=== PATIENT | male | born 1980 | race Caucasian/White ===

== ENCOUNTER 2019-06-09 10:38 | Day surgery (SDC) | payer BC ==
[~2019-06-09 10:38] MED LIST: CEFAZOLIN SODIUM 2 GM in DEXTROSE 5%-WATER 100 ML IV PRN; ONDANSETRON HCL INJ/PF 4 MG/2 ML SDV ONE; SUCCINYLCHOLINE CHLORIDE INJ 200 MG/10 ML VIAL ONE
[2019-06-09] MEDS ORDERED: CEFAZOLIN INJ 1 GM VIAL ONE (10:49)
[2019-06-09 11:34] LABS: ABSOLUTE BASOPHILS # (AUTO) 0.1 10^3/uL (0.0-0.2); ABSOLUTE LYMPHOCYTES (AUTO) 1.3 10^3/uL (0.5-4.7); ABSOLUTE MONOCYTES (AUTO) 0.5 10^3/uL (0.1-1.4); ABSOLUTE NEUT (AUTO) 3.9 10^3/uL (1.7-8.2); BASOPHILS % (AUTO) 1.1 % (0-2); EOSINOPHILS % (AUTO) 0.5 % (0-6); HEMATOCRIT 43.4 % (37.9-51.0); HEMOGLOBIN 14.9 g/dL (13.5-17.0); LYMPHOCYTES % (AUTO) 22.6 % (13-45); MEAN CORPUSCULAR HEMOGLOBIN 31.1 pg (27.0-33.4); MEAN CORPUSCULAR HGB CONC 34.4 g/dL (32.0-36.0); MEAN CORPUSCULAR VOLUME 91 fl (80-97); MONOCYTES % (AUTO) 8.4 % (3-13); PLATELET COUNT 309 10^3/uL (150-450); RED BLOOD COUNT 4.79 10^6/uL (4.35-5.55); SEGMENTED NEUTROPHILS % (AUTO) 67.4 % (42-78); TOTAL CELLS COUNTED % (AUTO) 100 %; WHITE BLOOD COUNT 5.8 10^3/uL (4.0-10.5)
[2019-06-09 11:52] LABS: ANION GAP 9 (5-19); BLOOD UREA NITROGEN 20 mg/dL (7-20); CALCIUM 9.8 mg/dL (8.4-10.2); CARBON DIOXIDE 30 mmol/L (22-30); CHLORIDE 102 mmol/L (98-107); GLUCOSE 88 mg/dL (75-110); POTASSIUM 4.8 mmol/L (3.6-5.0)
[2019-06-09] MEDS ORDERED: MIDAZOLAM 2 MG/2 ML INJ ONE (11:57)
[2019-06-09] MEDS ORDERED: PROPOFOL INJ 200 MG/20 ML VIAL IV ONE ×2 (11:57→12:41)
[2019-06-09] MEDS ORDERED: FENTANYL CITRATE INJ/PF 100 MCG/2 ML AMPUL ONE (11:57)
[2019-06-09] MEDS ORDERED: LIDOCAINE 1% INJ-PF (10 MG/ML) 30 ML SDV ONE (12:10)
[2019-06-09] MEDS ORDERED: BUPIVACAINE HCL 0.5 % INJ/PF 30 ML SDV ONE (12:10)
[2019-06-09] MEDS ORDERED: MEPERIDINE HCL/PF INJ 25 MG/1 ML DISP.SYRIN IV PRN (14:21)
[2019-06-09] MEDS ORDERED: PROMETHAZINE HCL INJ 25 MG/1 ML VIAL IV PRN ×2 (14:21)
[2019-06-09] MEDS ORDERED: FENTANYL CITRATE INJ/PF 100 MCG/2 ML AMPUL IV PRN ×3 (14:21)
[2019-06-09] MEDS ORDERED: DIPHENHYDRAMINE HCL 50 MG/ML VIAL IV PRN (14:21)
[2019-06-09] MEDS ORDERED: MORPHINE SULFATE 10 MG/ML INJ IV PRN ×2 (14:21→15:40)
[2019-06-09] MEDS ORDERED: ONDANSETRON HCL INJ/PF 4 MG/2 ML SDV IV PRN (15:40)
[2019-06-09] MEDS ORDERED: OXYCODONE-ACETAMINOPHEN 5-325 MG TABLET PO PRN (15:40)
--- NOTE | 2019-06-09 15:40 | Discharge Summary ---
Discharge Summary (SDC) - Discharge Final Diagnosis: Right thumb CMC dislocation Date of Surgery: 06/09/19 Discharge Date: 06/09/19 Condition: Good Treatment or Instructions: Schedule Follow Up w/ Dr. Doroteo Ramirez @ [facility] for Surgery to be seen in 10-14 days or as scheduled [place]: [place]: [place]: Ice and elevate Keep splint clean/dry/intact, do not remove. If your fingers become numb please unwrap the Terrence wrap but leave the splint in place, if the sensation does not return within 30 minutes please return to the emergency department. May begin finger range of motion attempting to make full fist. Please use ibuprofen (Motrin or Advil) 600-800 mg every 8 hours as needed for pain or fever DO NOT TAKE w/ TORADOL may use once TORADOL complete. You may also use acetaminophen (Tylenol) 1000 mg every 4-6 hours as needed for pain or fever. Please be aware that many medications contain acetaminophen, do not exceed a total of 1000 mg of acetaminophen every 6 hours. If ibuprofen and acetaminophen are not sufficient for your pain you may take the Percocet/[place]. Please be aware that the Percocet/[place] does contain Tylenol. Stool softener of choice when on pain medication. USE OF [id number] IBUPROFEN: Ibuprofen (Advil, Nuprin, Medipren, Motrin IB) is a medication for fever and pain control. In addition, it has anti- inflammatory effects which may be beneficial, especially in the treatment of injuries. It's best to take ibuprofen with food. Persons with ulcer disease or allergy to aspirin should notify their physician of this before taking ibuprofen. Ibuprofen can be given every four to six hours, for a total of four doses daily. Age Pain or fever dose Antiinflammatory dose 6-8 yr 200 mg (1 tab) 200 mg (1 tab) 9-11 yr 200 mg (1 tab) 200-400 mg (1-2 tab) 11-14 yr 200-400 mg (1-2 tab) 400 mg (2 tab) 15-adult 400 mg (2 tab) 600 mg (3 tab) ORAL NARCOTIC MEDICATION: You have been given a prescription for pain control. This medication is a narcotic. It's best taken with food, as nausea can result if taken on an empty stomach. Don't operate machinery or drive within six hours of taking this medication. Do not combine this medicine with alcohol, or with any medication which can cause sedation (such as cold tablets or sleeping pills) unless you get permission from the physician. Narcotics tend to cause constipation. If possible, drink plenty of fluids and eat a diet high in fiber and fruits. Please be aware that prescription narcotics also have the potential for abuse. People become addicted to these medications because of the general sense of wellbeing that they induce. This feeling along with a significant reduction in tension, anxiety, and aggression provides a stimulating seductive quality to these drugs. Once your pain is under control, we encourage you to discard your unused narcotics. Prescriptions: Ketorolac Tromethamine [Toradol 10 mg Tablet] 10 mg PO Q8HP PRN #12 tablet PRN Reason: Oxycodone HCl/Acetaminophen [Percocet 5-325 mg Tablet] 1 tab PO Q6 PRN #25 tablet PRN Reason: Referrals: SYLVIA BAEZ DO [Primary Care Provider] - Discharge Diet: As Tolerated Respiratory Treatments at Home: Deep Breathing/Coughing, Incentive Spirometer Discharge Activity: No Lifting Over 10 Pounds, No Lifting/Push/Pulling Report the Following to Your Physician Immediately: Fever over 101 Degrees, Unusual Bleeding, Redness, Swelling, Warmth, Increased Soreness
--- NOTE | 2019-06-09 15:55 | Operative Report ---
Operative Report DATE OF SURGERY: 06/09/19 PREOPERATIVE DIAGNOSIS: Right thumb CMC dislocation with trapezoid fracture POSTOPERATIVE DIAGNOSIS: Same OPERATION: Open reduction internal fixation right thumb CMC joint dislocation with ligament reconstruction with FCR autograft, percutaneous pinning, nonoperative treatment trapezoid SURGEON: LAM MÉNDEZ COMPLICATIONS: None ESTIMATED BLOOD LOSS: Minimal PROCEDURE: Indication for above procedure: 38-year-old male who sustained a injury when his thumb hit a rock during snowboarding approximately 1 week ago. Patient was seen this week where radiographs demonstrate CMC joint subluxation/dislocation with associated trapezoid fracture. Upon follow-up we discussed treatment options including operative versus nonoperative intervention. We discussed closed versus open reduction understanding limits of each. There is the possibility of recurrence despite adequate fixation after discussing risks and benefits joint decision was made to proceed with operative intervention. Procedure In Detail: Patient was seen and evaluated in the preoperative holding area. The RIGHT upper extremity was initialized and marked. Patient received 2g of Ancef IV for bacterial prophylaxis. Patient was taken back to the operative room where transferred to the operative table and placed under general anesthesia. Once they were adequately anesthetized a nonsterile tourniquet was placed on the upper extremity. A surgical team debriefing was performed ensuring all instrumentation was available, the surgical procedure was discussed with possible concerns reviewed. The upper extremity was prepped with chlorhexidine and alcohol and draped in a sterile fashion. A timeout was done identifying correct patient, procedure and extremity everyone in attendance agree with this and verbalized no concerns. The extremity was exsanguinated the tourniquet was inflated to 250 mmHg. Close reduction was attempted but unsuccessful thus decision was made to proceed with open reduction. A Jil skin incision was made along the thumb CMC joint. Blunt dissection was performed. Branches of the superficial radial nerve were freed from surrounding soft tissue and retracted. Superficial branch of the radial artery was identified and protected. Branches were protected throughout the case. The CMC joint was identified between the APL and EPB at the first dorsal compartment. Thenar musculature was extraperiosteal dissected to further expose the CMC joint. Transverse capsulotomy was made identifying interposed soft tissue. No evidence of chondral damage. Joint was then reduced C arm fluoroscopy was obtained confirming reduction of the fracture however patient had significant residual instability and thus would require ligament reconstruction. Insertion of the FCR was identified along the trapezial ridge and the distal septum released. 3-0 nylon suture was placed through the FCR to harvest a 4 mm radiallydistally based graft. 2 additional transverse skin incisions were made proximally shuttling the 3-0 nylon suture from a distal to proximal direction. Due to the configuration of the FCR tendon the ulnar portion was then released and tendon graft shuttled distally. Tendon wound was freed from soft tissue and released up to the trapezial ridge and its insertion along the index metacarpal base. The dorsal aspect of the thumb metacarpal was then isolated a 0.045 K wire was placed from dorsal to volar perpendicular to the thumbnail. C-arm fluoroscopy was obtained confirming appropriate trajectory. A 2.7 mm cannulated drill was then utilized to form a bone tunnel. Coello suture passer was then advanced from dorsal to volar and the FCR tendon shuttled beneath the superficial radial artery, superficial radial nerve and thenar musculature to be passed from a volar to dorsal direction. While maintaining reduction of the CMC joint attention was placed to the FCR tendon graft special attention was to avoid over tensioning the CMC joint once tension was optimized C arm fluoroscopy was obtained demonstrating anatomic reduction of the CMC joint. The graft was then sutured to the dorsal periosteum with 3-0 Ethibond suture. Range of motion of the CMC joint was performed to ensure adequate and optimal tension. Tendon graft was then passed beneath the 2 slips of the APL, passed around the intact FCR and then sutured to itself. Further sutures were placed to the periosteum and APL tendon utilizing 3-0 Ethibond and 4-0 FiberWire. At completion C arm fluoroscopy was obtained confirming acceptable reduction of the CMC joint with no evidence of subluxation and adequate stability on stress examination. While maintaining reduction a 0.045 K wire was placed on oscillate across the CMC joint with the thumb and radial abduction and extension. Final C-arm fluoroscopy was obtained confirming appropriate alignment of the K wire, CMC joint. Pin was then bent and cut left outside the skin. C arm fluoroscopy was then obtained of the third metacarpal base and trapezoid demonstrating no evidence of CMC subluxation or displacement of the fracture thus treatment would include closed treatment and splinting and cast. Wound was then copiously irrigated with normal saline. Tourniquet was deflated. Any peripheral bleeding was controlled with bipolar cautery. Thenar musculature was reapproximated with 3-0 Vicryl suture. Subcutaneous tissues were closed with 4-0 Monocryl suture. Skin was closed with subcuticular 4-0 Monocryl reinforced with Dermabond and Steri-Strips. 30 cc of 0.5% bupivacaine without epinephrine was injected for postoperative pain control. Patient was placed in a thumb spica splint maintaining radial abduction and mild extension of the CMC joint. Sponge counts, instrument counts, needle counts were correct. Patient was then awoken from anesthesia. Transferred from the operating room table to the operating room stretcher. There was no intraoperati ve complications patient tolerated procedure well stable to PACU. Postoperative plan: Patient follow-up in the office in 2 weeks at which point we will obtain radiographs. Will be placed in a thumb spica cast for additional 4 weeks. Patient will then be set up for occupational therapy fitted for a thermoplastic long opponent splint for additional 2 weeks we will begin range of motion at 4 weeks postoperatively. We will begin gentle strengthening at 8 weeks postoperative. Avoid strenuous pinching, torsional motion for for 3 months.
[2019-06-09] MEDS ORDERED: MEPERIDINE HCL/PF INJ 25 MG/1 ML DISP.SYRIN ONE (15:59)
[2019-06-09] MEDS: FENTANYL CITRATE INJ/PF 100 MCG/2 ML AMPUL ONE ×2 (16:08→16:20)
[2019-06-09] MEDS: HYDROMORPHONE HCL INJ/PF 2 MG/ML AMPULE ONE ×4 (16:36→16:56)
[2019-06-09] MEDS ORDERED: KETOROLAC TROMETHAMINE INJ/PF 30 MG/1 ML SDV ONE (16:42)
--- NOTE | 2019-06-09 16:43 | RADIOLOGY REPORT (SQ) ---
EXAM DESCRIPTION: NO CHG FLUORO; FINGER RIGHT COMPLETED DATE/TIME: 06/09/2019 3:33 pm REASON FOR STUDY: RT THUMB LIGAMENT RECONSTRUCTION, PINNING ASST WITH FLUORO IN OR COMPARISON: None. FLUOROSCOPY TIME: 2 minutes 8 seconds 7 Images saved to PACS LIMITATIONS: None. PROCEDURE: Thumb ligament reconstruction with pinning. FINDINGS: Images from fluoro document the procedure. IMPRESSION: Some ligament reconstruction with pinning. Refer to operative note for further informat ion. COMMENT: PQRS 6045F: Fluoroscopy time of the procedure is documented in the report. TECHNICAL DOCUMENTATION: JOB ID: [id number] [employer]- All Rights Reserved Reading location - IP/workstation name: [email or web address]
--- NOTE | 2019-06-09 16:43 | RADIOLOGY REPORT (SQ) ---
EXAM DESCRIPTION: NO CHG FLUORO; FINGER RIGHT COMPLETED DATE/TIME: 06/09/2019 3:33 pm REASON FOR STUDY: RT THUMB LIGAMENT RECONSTRUCTION, PINNING ASST WITH FLUORO IN OR COMPARISON: None. FLUOROSCOPY TIME: 2 minutes 8 seconds 7 Images saved to PACS LIMITATIONS: None. PROCEDURE: Thumb ligament reconstruction with pinning. FINDINGS: Images from fluoro document the procedure. IMPRESSION: Some ligament reconstruction with pinning. Refer to operative note for further informat ion. COMMENT: PQRS 6045F: Fluoroscopy time of the procedure is documented in the report. TECHNICAL DOCUMENTATION: JOB ID: [id number] [employer]- All Rights Reserved Reading location - IP/workstation name: [email or web address]
[2019-06-09] MEDS ORDERED: OXYCODONE-ACETAMINOPHEN 5-325 MG TABLET ONE (17:47)
[2019-06-09 19:50] VITALS: BP 123/71
== END 2019-06-09 19:15 | disposition home or self-care (01) ==
LOC: OROUT 10:38
PROVIDERS: ATTEND Orthopaedic Surgery
DX: S63.044A Dislocation of carpometacarpal joint of right thumb, initial encounter (principal); S62.184A Nondisplaced fracture of trapezoid [smaller multangular], right wrist, initial encounter for closed fracture; Y93.23 Activity, snow (alpine) (downhill) skiing, snowboarding, sledding, tobogganing and snow tubing
CPT/HCPCS: 36415; 85025; 80048; 73140; 01820; 25447; 20924; 26665; C1713 ×3; J2250; J3490; J0690; J3010; J2175; J1885; J1170; J0330; J2405; J2704; J7060